=== PATIENT | female | born 1980 | race Caucasian/White ===

== ENCOUNTER 2021-07-12 14:21 | Outpatient (REF) | payer MEDICAID, SELFPAY ==
--- NOTE | 2021-07-12 11:00 | PAPFT_PTH ---
PATIENT: Lashell Granger LOC: [facility]#:[id number] AGE/SX: 40/F ROOM: RE07/12/[address]: Ann-Marie Mcbride : 1980 BED: DIS: 07/12/2021 SPEC #: [id number] RECD: 07/13/21 12:51 STATUS: CAROL REQ #: [id number] NIK: 07/12/21 11:[address]: Ann-Marie Mcbride DEPT: [facility] Cytology RECD BY: Naomi Mauricio ENTERED: 07/13/21 12:51 SP TYPE: PAPFT OTHR DR: Mireya White Tissues: 1 - CX/ENDOCX FOR PAP SMEARS Procedures: PAP THIN PREP/[facility] Screening HPV DNA PROBE Comments: [id number]
== END 2021-07-12 14:22 | disposition home or self-care (01) ==
LOC: NCHCN 14:21
PROVIDERS: PCP Family Medicine; Visit Provider Nurse Practitioner Community Health
DX: Z12.4 Encounter for screening for malignant neoplasm of cervix (principal); B37.9 Candidiasis, unspecified; Z11.51 Encounter for screening for human papillomavirus (HPV)
CPT/HCPCS: 88142; 87480; 87510; 87624; 87660

== ENCOUNTER 2024-08-05 16:04 | Outpatient (REF) | payer BC, SELFPAY ==
[2024-08-06 10:43] LABS: HSV 1 DNA Result Negative (Negative); HSV 2 DNA Result Negative (Negative)
== END 2024-08-05 16:05 | disposition home or self-care (01) ==
LOC: NCHCN 16:04
PROVIDERS: PCP Family Medicine; Visit Provider Internal Medicine
DX: K13.70 Unspecified lesions of oral mucosa (principal)
CPT/HCPCS: 87529